=== PATIENT | male | born 1930 | race Caucasian/White ===

== ENCOUNTER 2017-01-25 00:45 | Inpatient (IN) | payer OTHER ==
[~2017-01-25] VITALS: Ht 157.5 cm; Wt 83.8 kg
--- NOTE | ~2017-01-25 | EKG ---
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
--- NOTE | ~2017-01-25 | 2DMMODE ---
[facility] [address] [place] [address] 2 D/M-MODE ECHOCARDIOGRAM Name: CORNELIA DONALDSON MARCOSElda Room #: 207-P ADM IN M.R.#: [id number] Admission: 01/25/17 Attend Phys: Damian Benz Discharge: Date of : 32 Date of Service: 01/25/17 1622 Report #: [id number] THIS REPORT FOR: //name// APPROVED REPORT EXAM: Comprehensive 2D, Doppler, and color-flow Echocardiogram Patient Location: Bedside/Room 207 Blood Pressure: 100/59 mmHg HR: 91 bpm Rhythm: Irregular Other Information Study Quality: Adequate. Technically limited study due to lung artifact. Difficult parasternal window.. Indications SOA, edema, CHF. Hx: DM 2D Dimensions RVDd: 44.52 mm LVEF(%): 35.68 (>50%) IVSd: 10.78 (7-11mm) LVOT Diam: 23.46 (18-24mm) LVDd: 56.48 mm PWd: 9.94 (7-11mm) Ascending Aorta: 36.77 mm LVDs: 46.69 (25-40mm) IVC: 24.00 mm Hyde's LVEF: 35.68 % Volumes Left Atrial Volume (Systole) Single Plane 4CH: 87.81 mL Single Plane 2CH: 89.32 mL Aortic Valve AoV Peak Chaitanya.: 1.50 m/s AO Peak Gr.: 9.04 mmHg LV Max P.93 mmHg LV Max: 0.69 m/s Mitral Valve MV PHT: 47.62 ms MV E Max Chaitanya.: 1.59 m/s E/A Ratio: 2.2 MV A Chaitanya.: 0.71 m/s MV Decel. Time: 164.22 ms [facility] [place] [address] 2 D/M-MODE ECHOCARDIOGRAM Name: CORNELIA DONALDSON MARCOSElda Room #: 207-[facility] IN M.R.#: [id number] Admission: 01/25/17 Attend Phys: Damian Benz Discharge: Date of : 32 Date of Service: 01/25/17 1622 Report #: [id number] TDI E/Lateral E': 19.00 E/Medial E': 41.00 Pulmonary Valve PV Peak Chaitanya.: 0.55 m/s PV Peak Gr.: 1.23 mmHg Tricuspid Valve TR Peak Chaitanya.: 3.40 m/s RAP Estimate: 10.00 mmHg TR Peak Gr.: 46.34 mmHg RVSP: 56.00 mmHg Left Ventricle The left ventricle is normal size. There is normal left ventricular wall thickness. Left ventricular systolic function is severely decreased. LVEF is 30-35% with segmental wall motion abnormalities and apical mild dyskinesia Grade III - reversible restrictive diastolic dysfunction. Right Ventricle Right ventricle is mildly dilated. Right ventricle is hypokinetic. Atria Left atrium is moderate to severely dilated. Right atrium is mildly dilated. Aortic Valve Aortic valve is calcified with focal echodensity which cannot rule out vegetation although calcification likely Mild aortic regurgitation. There is no aortic valvular stenosis. Mitral Valve Mitral valve is normal in structure. Mild mitral annular calcification. Moderate to severe mitral regurgitation There is no mitral valve stenosis. Tricuspid Valve The tricuspid valve is normal in structure. There is moderate tricuspid regurgitation. The right atrial pressure is estimated at 10 mmHg. There is moderate pulmonary hypertension with a pulmonary artery pressure estimated at 56mmHg. Pulmonic Valve The pulmonary valve is normal in structure. Mild pulmonic regurgitation. [employer] [facility] [address] [place] [address] 2 D/M-MODE ECHOCARDIOGRAM Name: CORNELIA DONALDSON Room #: 207-P ADM IN M.R.#: [id number] Admission: 01/25/17 Attend Phys: Damian Benz Discharge: Date of : 32 Date of Service: 01/25/17 1622 Report #: [id number] Aortic root is mildly dilated. Ascending aorta measures at the upper limits of normal. IVC is normal in size and collapses <50% with inspiration. Pericardium There is no pericardial effusion. <Conclusion> The left ventricle is normal size. LVEF is 30-35% with segmental wall motion abnormalities and apical mild dyskinesia Right ventricle is mildly dilated. Right ventricle is hypokinetic. Left atrium is moderate to severely dilated. Right atrium is mildly dilated. Aortic valve is calcified with focal echodensity which cannot rule out vegetation although calcification likely Mild aortic regurgitation. Mitral valve is normal in structure. Mild mitral annular calcification. Moderate to severe mitral regurgitation There is moderate tricuspid regurgitation. The right atrial pressure is estimated at 10 mmHg. There is moderate pulmonary hypertension with a pulmonary artery pressure estimated at 56mmHg. Mild pulmonic regurgitation. Aortic root is mildly dilated. <ELECTRONICALLY SIGNED> By: Miguelangel Valle MD 01/25/17 1622 162 162 Miguelangel Valle MD /INF
--- NOTE | ~2017-01-25 | HC ---
[facility] [place] [address] CONSULTATION Name: CORNELIA DONALDSON Room #: 207-P ADM IN M.R.#: [id number] Admission: 01/25/17 Attend Phys: Damian Joaquin Discharge: Date of : 31 Report #: [id number] THIS REPORT FOR: //name// CC: Aj Joaquin DATE OF ADMISSION: 01/25/2017 DATE OF CONSULTATION: 01/25/2017 REASON FOR CONSULTATION: Kidney disease in the setting of diabetes mellitus and congestive heart failure. HISTORY OF PRESENT ILLNESS: This 86-year-old male has a known history of hypertension and diabetes. He is uncertain how long his hypertension and diabetes had been present, however. He tells me that he had recent hypoglycemia and that his diabetes medications were discontinued. The patient presented to [facility] with shortness of breath and congestive heart failure. He was given furosemide 80 mg IV and transferred to [facility] for further evaluation and treatment. PAST MEDICAL HISTORY: Remarkable for BPH, congestive heart failure, diabetes mellitus and hypertension. ALLERGIES: Are reported to RADIOLotedaTRAST. MEDICATIONS: On admission to the hospital include furosemide 60 mg daily, prednisone 5 mg daily, zolpidem p.r.n., tamsulosin 0.4 mg daily, aspirin 81 mg daily. PAST SURGICAL HISTORY: Is remarkable for cataract extraction and previous right knee surgery, details unknown. PERSONAL AND SOCIAL HISTORY: The patient does not smoke, use alcohol or have any history of substance abuse. REVIEW OF SYSTEMS: Remarkable for the absence of fevers, chills, sweats or other constitutional complaints. He reports some increasing pedal edema over the past several weeks. He reports some difficulty with his voiding. He has had no previous prostate procedures. He denies shortness of breath at rest. He has had dyspnea on exertion. He denies chest pain, palpitations, nausea, vomiting, diarrhea or constipation. PHYSICAL EXAMINATION: GENERAL: Reveals a well-developed, well-nourished elderly male in no acute distress. [facility] [address] [place] [address] CONSULTATION Name: MENDOZACORNELIA STEPHENS Room #: [facility] IN M.R.#: [id number] Admission: 01/25/17 Attend Phys: Damian Joaquin Discharge: Date of : 31 Report #: [id number] VITAL SIGNS: Blood pressure 121/71, temperature 97.2, pulse 92, respirations 22, weight 185 pounds. SKIN: Warm and dry. There is 1+ edema of the lower extremities bilaterally. There is no evidence of cellulitis. There are no cords palpable. There is no gross adenopathy present. HEENT: The head is normocephalic and atraumatic. The sclerae are white and the conjunctivae are not injected. The pharynx is benign. NECK: Supple. LUNGS: Johns reveal diminished breath sounds at the bases bilaterally without wheezes or crackles heard. CARDIOVASCULAR: Reveals a regular rate and rhythm without rub. ABDOMEN: Obese, soft and nontender without palpable mass or organomegaly. LABORATORY STUDIES: Available at this time includes sodium 143, potassium 3.3, chloride 103, CO2 of 27, BUN 40, creatinine 2.0, glucose 147. Albumin 3.3. ASSESSMENT: 1. Renal insufficiency of unclear etiology or duration. I suspect the patient has evolving diabetic nephropathy. Full serologic evaluation as well as urine studies and renal ultrasound are in order and I will proceed to order these. I agree with current ongoing intravenous Lasix diuresis with appropriate potassium supplementation as has been done already this morning. 2. Diabetes mellitus. 3. Hypertension. 4. Benign prostatic hypertrophy. PLAN: I have ordered additional diagnostic studies as outlined. He needs instruction on a 2 g sodium 1800 calorie ADA diet as well. Please see orders. <ELECTRONICALLY SIGNED> By: Rizwan Burris MD 01/26/17 0832 1250 [id number] Rizwan Burris MD /nt
--- NOTE | ~2017-01-25 | CATHLAB ---
[facility] [address] [employer] [place] [address] INVASIVE PROCEDURE REPORT Name: CORNELIA DONALDSON Room #: 249-P ADM IN M.R.#: [id number] Admission: 01/25/17 Attend Phys: Damian Benz Discharge: Date of : 32 Date of Service: 01/27/17 1413 Report #: [id number] THIS REPORT FOR: //name// CC: Aj Joaquin DATE OF SERVICE: 01/27/2017 REFERRING PHYSICIAN: Kwesi Fairbanks MD INDICATION: Non-ST elevation NV and congestive heart failure. Full risks, benefits and alternatives of cardiac catheterization were explained to the patient. All questions were answered. Informed consent was obtained. A Barbeau test was performed on the right radial artery. Initially, the diagnostic catheterization was performed using the right femoral artery access. A 4-Citizen Of [place] sheath was inserted into the right femoral artery via modified Seldinger technique. Trying to pass the catheters into the aortic sinus was difficult secondary to excessive tortuosity in the right iliac artery, abdominal aorta and thoracic aorta. It was decided to proceed with the procedure via the right radial artery access. A 5-Citizen Of [place] sheath was inserted into the right radial artery. Nitroglycerin and verapamil was injected through the sheath. 3000 units of heparin was given through peripheral IV. CORONARY ANATOMY: Left main has a moderate stenosis of 50-60% in the mid segment. The LAD has a severe stenosis in the proximal segment, 80%. The left circumflex artery has a severe 80% stenosis in the proximal segment. The RCA is a dominant vessel with a severe, 90% stenosis in the proximal segment. A left ventriculogram was not performed in view of an elevated creatinine level. The LVEDP is 49 mmHg. There is no gradient across the outflow tract. IMPRESSION: 1. Severe 3-vessel disease. 2. Elevated left ventricular end-diastolic pressure. 3. Recommend surgical consultation. <ELECTRONICALLY SIGNED> By: Aries Brandt MD 01/28/17 0748 1413 0132 Aries Brandt MD /nt
--- NOTE | ~2017-01-25 | HC ---
[facility] [place] [address] CONSULTATION Name: MENDOZACORNELIA Room #: 213-P [facility] IN M.R.#: [id number] Admission: 01/25/17 Attend Phys: Damian Joaquin Discharge: 02/04/17 Date of : 31 Report #: [id number] THIS REPORT FOR: //name// CC: Aj Joaquin DATE OF SERVICE: 02/03/2017 HISTORY OF PRESENT ILLNESS: The patient is an 86-year-old white male, originally admitted to [facility] with increased shortness of breath. He was noted to have acute respiratory failure with a CHF exacerbation. Elevated troponin. He had anasarca and gzfeu-jx-gkufsdc renal insufficiency. He underwent cardiac catheterization and noted to have coronary artery disease with stenting to the LAD and right coronary artery. He was doing quite well, was ambulating 150 feet with a front-wheeled walker and getting ready for discharge, when he had the sudden onset of right arm and leg weakness on 02/02. A Code Stroke was called. Neurology was consulted. MRI did reveal an acute to subacute, moderate sized upper right cerebellar infarct without hemorrhage. He was noted to have significant decline in his overall functional mobility and ADLs, and we have been consulted regarding inpatient rehabilitation. PAST MEDICAL HISTORY: Includes asthma, BPH, diabetes mellitus, recent diagnosis of CHF, cataracts and right knee surgery. PAST SURGICAL HISTORY: As noted above. HABITS: No history of tobacco or ETOH. ALLERGIES: CONTRAST DYE. SOCIAL HISTORY: Lives in an apartment with his . No stairs. Used a walker premorbidly. There is a daughter who lives in the area and a son who is visiting from [place]. REVIEW OF SYSTEMS: Did not offer any current complaints of chest pain, shortness of breath or abdominal discomfort. He has frustration with the weakness of the right side and his decreased function. PHYSICAL EXAMINATION: GENERAL: An 86-year-old white male, in no obvious distress. VITAL SIGNS: Last recorded temperature is 98, pulse 80, respirations 18 and blood pressure 93/61. NEUROLOGIC: He is alert. He tends to keep his right eye closed as it seems to help with some double vision. With EOMs, he had reasonably good tracking. I could not detect any obvious visual field neglect to confrontation. Facies appeared to be symmetric. He does have definite decreased coordination of that [facility] [address] [place] [address] CONSULTATION Name: CORNELIA DONALDSON Room #: 213-P [facility] IN M.R.#: [id number] Admission: 01/25/17 Attend Phys: Damian Joaquin Discharge: 02/04/17 Date of : 31 Report #: [id number] right upper extremity with ysldbr-yd-vgrd, fine finger dexterity and rapid alternating movements. Strength is grade 4- to 3+/5. Left upper extremity strength is more of a grade 4/5. In his lower extremities, he appeared to have decreased coordination of that right lower extremity. Strength is a grade 4- to 3+. Left lower extremity strength is more of a grade 4. Sensation was reasonably intact to simultaneous stimulation. He has had some listing to the right and now is needing moderate assist with sit to stand. He was able to take 2 steps max assist with a front-wheeled walker. ASSESSMENT: An 86-year-old male with the following problem list: 1. Acute, moderate sized upper right cerebellar infarct. 2. Right-sided upper and lower extremity tammy coordination deficits. 3. Significant functional mobility and ADL deficits. 4. Rule out visual deficits. He tends to keep the right eye closed. 5. Three-vessel coronary artery disease status post stenting left anterior descending and right coronary artery. 6. Congestive heart failure exacerbation. 7. Elevated troponin. 8. Recent acute respiratory failure. 9. Acute renal insufficiency superimposed on chronic kidney disease. PLAN: The patient is a candidate who would benefit from an acute in-hospital inpatient rehabilitation stay. He has an acute CVA and definitely meets diagnostic and medical necessity criteria. He definitely has the tolerance for an acute rehab level of therapies, and this is well delineated in the physical therapy note from earlier today. Would recommend PT, OT and speech therapy with the visual deficit and complaints that he has with some diplopia. He has a supportive family and has appropriate discharge goals back to the home setting. Insurance precertification issues to be obtained with the plan of transferring to the acute inpatient rehabilitation [facility]. Discussion was held with family members present. We will be glad to continue to follow along with you. <ELECTRONICALLY SIGNED> By: Sidney House MD 02/07/17 1455 1355 0251 Sidney House MD /nt
--- NOTE | ~2017-01-25 | EKG ---
[place] [address] [address] [facility] [place] [address] ELECTROCARDIOGRAM REPORT Name: CORNELIA DONALDSON Room #: 213-P ADM IN M.R.#: [id number] Admission: 01/25/17 Attend Phys: Damian Joaquin Discharge: Date of : 31 Report #: [id number] THIS REPORT FOR: //name// [facility] Test Date: 2017-01-30 Test Time: 02:06:48 Pat Name: CORNELIA DONALDSON Department: Room: 213 Gender: Tie Sawyer: aw01 : 1930 Requested By: Irina Lowe Order Number: [id number] MD: Kwesi Fairbanks Measurements Intervals [place] Rate: 86 P: 54 [place]: 161 QRS: 42 QRSD: 100 T: 160 QT: 397 QTc: 475 Interpretive Statements Sinus rhythm Borderline low voltage, extremity leads Nonspecific repol abnormality, diffuse leads Compared to ECG 01/28/2017 06:53:52 No significant changes Electronically Signed On 02-03-2017 13:02:31 CDT by Kwesi Fairbanks [email or web address] <ELECTRONICALLY SIGNED> By: Kwesi Fairbanks MD 02/03/17 1302 5 5 Kwesi Fairbanks MD /MICHA
--- NOTE | ~2017-01-25 | EKG ---
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
--- NOTE | ~2017-01-25 | EKG ---
[address] [address] ELECTROCARDIOGRAM REPORT Name: CORNELIA DONALDSON Room #: 213-P ADM IN M.R.#: [id number] Admission: 01/25/17 Attend Phys: Damian Joaquin Discharge: Date of : 31 Report #: [id number] THIS REPORT FOR: //name// 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
--- NOTE | ~2017-01-25 | EKG ---
[address] 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
--- NOTE | ~2017-01-25 | HC ---
[facility] [place] [address] CONSULTATION Name: CORNELIA DONALDSON Room #: 213- ADM IN M.R.#: [id number] Admission: 01/25/17 Attend Phys: Damian Joaquin Discharge: Date of : 31 Report #: [id number] THIS REPORT FOR: //name// CC: Aj Joaquin We were asked by Dr. Brandt to see the patient. HISTORY OF PRESENT ILLNESS: The patient is an 86-year-old admitted with progressive shortness of breath for 2-3 weeks. The patient is Czech speaking and much of this was done with an director perioperative. There is no history of chest pain, but there is a progressive history of shortness of breath and fluid retention. Cardiac catheterization today shows severe 3-vessel coronary artery disease with 80% lesions in LAD, circumflex system and right coronary artery. Left ventricular function is reduced on echo and is approximately 20%. PAST MEDICAL HISTORY: Significant for hypertension, diabetes mellitus, asthma, possible transient ischemic attack. MEDICATIONS: Includes Lasix, Prednisone, zolpidem, tamsulosin, hydrocodone, aspirin. ALLERGIES: CONTRAST DYE. SOCIAL HISTORY: , was transferred here from [place], never smoker, no alcohol. FAMILY HISTORY: Significant for heart disease, cancer and diabetes. REVIEW OF SYSTEMS: CONSTITUTIONAL: Denies fever, chills, change in appetite. EYES: No eye pain, visual change. HEENT: No congestion, headache, drainage. RESPIRATORY: Affirmative for shortness of breath, dyspnea on exertion, orthopnea, shortness of breath both with exertion and rest. No cough, hemoptysis. CARDIAC: Shortness of breath on exertion, edema, orthopnea. No chest pain, palpitations. GASTROINTESTINAL: No nausea, vomiting, diarrhea or blood. GENITOURINARY: No urinary frequency, urgency or blood. MUSCULOSKELETAL: Has myalgias, no back pain, muscle pain. SKIN: No rash or infection. NEUROLOGIC: No motor or sensory dysfunction. There is a history of syncopal or near syncopal episode two or so years ago when patient was lying on the floor and was somewhat disoriented, but does not appear to have been repeated. PSYCHIATRIC: No anxiety or depression. ENDOCRINE: No hot or cold intolerance. [address] [address] CONSULTATION Name: CORNELIA DONALDSON Room #: 213-P [facility] IN M.R.#: [id number] Admission: 01/25/17 Attend Phys: Damian Joaquin Discharge: Date of : 31 Report #: [id number] HEMATOLOGIC: No bruising, anemia, swelling. PHYSICAL EXAMINATION: VITAL SIGNS: Blood pressure 120/90, heart rate 93, respiratory rate 24. GENERAL: The patient is lying on the gurney sedate, not very animated, appears chronically weak, but no acute distress. HEENT: No scleral icterus. Pupils are round, equal. Gaze conjugate, normocephalic. No nasal or oral mucosal injection. NECK: No lymphadenopathy, no bruit. CHEST: Distant breath sounds. No adventitious sounds heard. HEART: Rhythm regular, no murmurs or gallops. Heart tones somewhat distant. ABDOMEN: Soft, no mass, no tenderness. EXTREMITIES: 1-2+ edema. Strong popliteal pulses. I do not feel distal pulses. SKIN: Moist, edematous, no rash or infection. NEUROLOGIC: No obvious motor or sensory dysfunction. MUSCULOSKELETAL: No bone or joint deformity or asymmetry or deformity. PSYCHIATRIC: Answers questions appropriately in Czech with the director perioperative, not very conversant; however, seems to have insight into problem. ASSESSMENT AND PLAN: The patient has ischemic cardiomyopathy and presents with shortness of breath. Traditionally, this category of patients are not helped by coronary artery bypass surgery as opposed to the subset who present with chest pain. I will discuss the case with Dr. Brandt. Certainly, the patient looks chronically weak and with poor ventricular function and the presentation of heart failure without pain, he is in a high risk subcategory for surgery. <ELECTRONICALLY SIGNED> By: Sam Suárez MD 02/01/17 0829 1955 0510 Sam Suárez MD /nt
--- NOTE | ~2017-01-25 | CATHLAB ---
[facility] [address] [place] [address] INVASIVE PROCEDURE REPORT Name: MENDOZACORNELIA Room #: 213-P [facility] IN M.R.#: [id number] Admission: 01/25/17 Attend Phys: Damian Benz Discharge: Date of : 31 Date of Service: 02/01/17 0942 Report #: [id number] THIS REPORT FOR: //name// CC: Aj Joaquin DATE OF SERVICE: 02/01/2017 INDICATION: Ischemic cardiomyopathy, congestive heart failure, non-ST elevation MA. This is a stage angioplasty procedure. Please see the original cardiac cath report for full details. There were severe occlusions in the proximal LAD and mid RCA Full risks, benefits and alternatives of cardiac catheterization with angioplasty has been discussed with the patient and family members. All questions were answered. Informed consent was obtained. The left groin area was prepped and draped in a sterile manner. Lidocaine was given subcutaneously. A 6-Slovak 23-mm sheath was placed. Angioplasty on vessel #1. The patient was given heparin and ACT was checked. A 6-Slovak EBU 3.5 guide catheter was used. There was a severe 90% stenosis in the proximal LAD. I placed a Luge wire down the LAD. The proximal stenosis was predilated with a 2.0 mm Euphora balloon. This was a long area of stenosis elected to use a 2.5 x 26 mm Resolute stent (drug-eluting stent), inflated up to 14 atmospheres. This stent was postdilated with a 2.75 mm noncompliant balloon, NC Euphora inflated up to 18 and 20 mm respectively. Final injections revealed SHAKIRA 3 blood flow down the LAD with a less than 10% residual stenosis at the lesion site. Vessel #2, 90% stenosis in the mid RCA. A JR4 guide catheter was used. I placed a Luge wire down the RCA. The mid segment stenosis was predilated with a mm balloon. I elected to use a 3.0 x 18 mm Resolute stent, inflated up to 14 atmospheres. This stent was postdilated with a 3.25 mm noncompliant balloon, NC Euphora inflated up to 18 atmospheres. Final injections revealed SHAKIRA 3 blood flow with a 0% residual stenosis. IMPRESSION: 1. Successful insertion of a drug-eluting stent to the proximal left anterior descending. 2. Successful insertion of a drug-eluting stent into the mid right coronary artery stenosis. <ELECTRONICALLY SIGNED> By: Aries Brandt MD 02/02/17 0841 0942 1220 Aries Brandt MD /nt
--- NOTE | ~2017-01-25 | EKG ---
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
--- NOTE | ~2017-01-25 | EKG ---
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 01/26/17 0740 0648 7 Lawrence Sutton MD, FACC /EPI
[2017-01-25 01:30] VITALS: BP 117/75
[2017-01-25] MEDS ORDERED: LASIX 20 MG TAB20 MG PO (02:50)
[2017-01-25] MEDS ORDERED: PREDNISONE 5 MG5 M1 PO (02:51)
[2017-01-25] MEDS ORDERED: AMBIEN 5 MG TABL5 M1 PO (02:52)
[2017-01-25] MEDS ORDERED: FLOMAX0.4 MG PO (02:53)
[2017-01-25] MEDS ORDERED: HYDROCODONE-AP1 EAC6 PO (02:55)
[2017-01-25] MEDS ORDERED: ASPIR 8181 MG PO (02:55)
[2017-01-25 04:04] LABS: ALBUMIN 3.3 g/dL (3.4-5.0); CALCIUM 8.1 mg/dL (8.5-10.1); POTASSIUM 3.3 mmol/L (3.5-5.1); TROPONIN-I 0.13 ng/mL (<0.04-0.07)
[2017-01-25 04:06] VITALS: BP 104/69
[2017-01-25 07:40] VITALS: BP 100/59
[2017-01-25 12:30] VITALS: BP 121/71
[2017-01-25 16:00] VITALS: BP 104/71
[2017-01-25] MEDS ORDERED: NEURONTIN 300300 M1 PO (16:44)
[2017-01-25] MEDS ORDERED: NORCO 10-325 T1 EACH PO (16:45)
[2017-01-25 16:46] LABS: URINE BILIRUBIN NEGATIVE (Negative); URINE BLOOD NEGATIVE (Negative); URINE COLOR YELLOW; URINE GLUCOSE-RANDOM* NEGATIVE (Negative); URINE KETONES NEGATIVE (Negative); URINE NITRITE NEGATIVE (Negative); URINE PROTEIN (DIPSTICK) NEGATIVE (Negative); URINE UROBILINOGEN 0.2 E.U./dl (0.2-1.0)
[2017-01-25] MEDS ORDERED: PERCOCET 7.5-31 EACH PO (16:46)
[2017-01-25 16:58] LABS: BACTERIA >30 Many /HPF (None Seen); CRYSTALS None Seen /LPF (None Seen); HYALINE CASTS 0-3 Few /LPF (None Seen); SQUAMOUS 0-3 Few /LPF (0-3); URINE RBC 0-2 Rare /HPF (0-2); URINE WBC >25 Many /HPF (0-5); WBC CLUMPS Few (None Seen)
[2017-01-25 19:43] VITALS: BP 131/84
[2017-01-26 00:10] LABS: URINE CREATININE-RANDOM* 74.8 mg/dL (Not Estab.)
[2017-01-26 03:23] LABS: HEMATOCRIT 36.1 % (42.0-52.0); HEMOGLOBIN 11.6 gm/dL (14.0-18.0); MCH 28.7 pg (26.0-34.0); MCHC 32.2 g/dL (28.0-37.0); MCV 89.3 fL (80.0-100.0); RBC 4.05 mil/uL (4.50-6.00); RDW 16.8 % (10.5-14.5); WBC 8.6 thou/uL (4.0-11.0)
[2017-01-26 03:43] LABS: ALBUMIN 3.1 g/dL (3.4-5.0); CALCIUM 8.1 mg/dL (8.5-10.1); CREATININE 2.4 mg/dL (0.6-1.3); PHOSPHORUS 4.4 mg/dL (2.5-4.9); POTASSIUM 3.9 mmol/L (3.5-5.1); TROPONIN-I 0.13 ng/mL (<0.04-0.07)
[2017-01-26 04:18] VITALS: BP 104/71
[2017-01-26 08:35] VITALS: BP 128/78
[2017-01-26 13:50] VITALS: BP 107/72
[2017-01-26 20:00] VITALS: BP 111/81
[2017-01-26 23:35] VITALS: BP 106/69
[2017-01-27 02:24] LABS: ALBUMIN 3.1 g/dL (3.4-5.0); CALCIUM 8.1 mg/dL (8.5-10.1); CREATININE 2.3 mg/dL (0.6-1.3); PHOSPHORUS 3.9 mg/dL (2.5-4.9); POTASSIUM 4.5 mmol/L (3.5-5.1)
[2017-01-27 03:47] VITALS: BP 129/84
[2017-01-27 07:15] VITALS: BP 108/75
[2017-01-27 11:40] VITALS: BP 115/82
[2017-01-27 16:08] LABS: KAPPA FREE LIGHT CHAINS 53.15 mg/L (3.30-19.40); KAPPA/LAMBDA RATIO 1.48 (0.26-1.65); LAMBDA FREE LIGHT CHAINS 35.85 mg/L (5.71-26.30)
[2017-01-28] VITALS (22 sets, daily range): BP systolic 97–115; BP diastolic 70–89
[2017-01-28 03:28] LABS: ABG SAMPLE TYPE ARTERIAL; BE(vivo) -3.4 mmol/L (-2 to +3); HCO3 20.8 mmol/L (22.0-26.0); LACTATE 2.22 mmol/L (0.5-2.0); O2(CT) 16.8 mL/dL (15.0-23.0); O2Hb 96.3 % (92.0-98.0); PCO2 34.8 mmHg (35.0-45.0); STICK SITE L.RADIAL; pH 7.395 (7.360-7.450); sO2 97.4 % (92.0-98.0); tCO2 21.9 mmol/L (24.0-30.0)
[2017-01-28 05:07] LABS: HEMATOCRIT 35.5 % (42.0-52.0); HEMOGLOBIN 11.5 gm/dL (14.0-18.0); MCH 29.1 pg (26.0-34.0); MCHC 32.3 g/dL (28.0-37.0); MCV 90.2 fL (80.0-100.0); RBC 3.94 mil/uL (4.50-6.00); RDW 17.2 % (10.5-14.5); WBC 10.5 thou/uL (4.0-11.0)
[2017-01-28 06:01] LABS: ALBUMIN 3.1 g/dL (3.4-5.0); CALCIUM 8.2 mg/dL (8.5-10.1); CREATININE 2.4 mg/dL (0.6-1.3); PHOSPHORUS 6.2 mg/dL (2.5-4.9); POTASSIUM 5.1 mmol/L (3.5-5.1); TROPONIN-I 0.35 ng/mL (<0.04-0.07)
[2017-01-28 16:09] LABS: c-ANCA <1:20 titer (Neg:<1:20); p-ANCA <1:20 titer (Neg:<1:20)
[2017-01-29] VITALS (25 sets, daily range): BP systolic 92–134; BP diastolic 61–103
[2017-01-29 04:15] LABS: HEMATOCRIT 33.8 % (42.0-52.0); HEMOGLOBIN 11.1 gm/dL (14.0-18.0); MCH 29.2 pg (26.0-34.0); MCHC 32.7 g/dL (28.0-37.0); MCV 89.3 fL (80.0-100.0); RBC 3.79 mil/uL (4.50-6.00); RDW 17.1 % (10.5-14.5); WBC 9.9 thou/uL (4.0-11.0)
[2017-01-29 04:33] LABS: ALBUMIN 3.1 g/dL (3.4-5.0); CALCIUM 8.1 mg/dL (8.5-10.1); CREATININE 2.7 mg/dL (0.6-1.3); MAGNESIUM 2.2 mg/dL (1.8-2.4); PHOSPHORUS 7.4 mg/dL (2.5-4.9); POTASSIUM 4.5 mmol/L (3.5-5.1)
[2017-01-30] VITALS (30 sets, daily range): BP systolic 87–111; BP diastolic 64–85
[2017-01-30 03:44] LABS: ALBUMIN 2.9 g/dL (3.4-5.0); CALCIUM 7.6 mg/dL (8.5-10.1); CREATININE 2.8 mg/dL (0.6-1.3); PHOSPHORUS 8.1 mg/dL (2.5-4.9); POTASSIUM 4.3 mmol/L (3.5-5.1)
[2017-01-31 03:57] LABS: ALBUMIN 2.8 g/dL (3.4-5.0); CALCIUM 7.4 mg/dL (8.5-10.1); PHOSPHORUS 7.1 mg/dL (2.5-4.9)
[2017-01-31 04:23] VITALS: BP 99/67
[2017-01-31 07:41] VITALS: BP 101/58
[2017-01-31 11:47] VITALS: BP 99/63
[2017-01-31 16:00] LABS: HEMATOCRIT 33.5 % (42.0-52.0); MCH 28.8 pg (26.0-34.0); MCHC 32.8 g/dL (28.0-37.0); MCV 87.7 fL (80.0-100.0); RBC 3.82 mil/uL (4.50-6.00); RDW 16.4 % (10.5-14.5); WBC 10.5 thou/uL (4.0-11.0)
[2017-01-31 16:08] LABS: CALCIUM 7.5 mg/dL (8.5-10.1)
[2017-01-31 17:47] VITALS: BP 131/65
[2017-01-31 21:09] VITALS: BP 107/63
[2017-02-01 03:32] VITALS: BP 98/64
[2017-02-01 04:15] LABS: ALBUMIN 2.8 g/dL (3.4-5.0); CREATININE 2.8 mg/dL (0.6-1.3); MAGNESIUM 2.4 mg/dL (1.8-2.4); PHOSPHORUS 5.6 mg/dL (2.5-4.9); POTASSIUM 3.4 mmol/L (3.5-5.1)
[2017-02-01 04:16] LABS: HEMATOCRIT 31.4 % (42.0-52.0); HEMOGLOBIN 10.2 gm/dL (14.0-18.0); MCH 28.9 pg (26.0-34.0); MCHC 32.6 g/dL (28.0-37.0); MCV 88.9 fL (80.0-100.0); RBC 3.53 mil/uL (4.50-6.00); RDW 16.6 % (10.5-14.5); WBC 10.1 thou/uL (4.0-11.0)
[2017-02-01 13:30] VITALS: BP 108/74
[2017-02-01 16:00] VITALS: BP 103/71
[2017-02-01 20:01] VITALS: BP 97/65
[2017-02-01 23:44] VITALS: BP 122/86
[2017-02-02] VITALS (7 sets, daily range): BP systolic 99–114; BP diastolic 61–90
[2017-02-02 03:51] LABS: ALBUMIN 2.3 g/dL (3.4-5.0); CREATININE 2.5 mg/dL (0.6-1.3); PHOSPHORUS 7.5 mg/dL (2.5-4.9); POTASSIUM 3.9 mmol/L (3.5-5.1)
[2017-02-02 04:11] LABS: HEMATOCRIT 27.4 % (42.0-52.0); HEMOGLOBIN 8.9 gm/dL (14.0-18.0); MCH 29.1 pg (26.0-34.0); MCHC 32.6 g/dL (28.0-37.0); MCV 89.4 fL (80.0-100.0); RBC 3.06 mil/uL (4.50-6.00); RDW 16.5 % (10.5-14.5); WBC 9.4 thou/uL (4.0-11.0)
[2017-02-02] MEDS ORDERED: CEFUROXIME250 MG PO (09:00)
[2017-02-02] MEDS ORDERED: CLOPIDOGREL75 MG PO (09:00)
[2017-02-02] MEDS ORDERED: ATORVASTATIN CA20 MG PO (09:01)
[2017-02-02] MEDS ORDERED: ASPIRIN325 PO (09:01)
[2017-02-02] MEDS ORDERED: CARVEDILOL3.125 MG PO (09:01)
[2017-02-02] MEDS ORDERED: ACETAMINOPHEN325 M1 PO (09:01)
[2017-02-02] MEDS ORDERED: COLACE 100 MG100 MG PO (09:02)
[2017-02-02] MEDS ORDERED: RENVELA800 MG PO (09:02)
[2017-02-02] MEDS ORDERED: LASIX 40 MG TAB40 M2 PO (09:27)
[2017-02-02 11:23] LABS: HEMATOCRIT 27.8 % (42.0-52.0); MCH 28.8 pg (26.0-34.0); MCHC 32.4 g/dL (28.0-37.0); MCV 88.9 fL (80.0-100.0); PLATELET COUNT 133 thou/uL (150-400); RBC 3.13 mil/uL (4.50-6.00); RDW 16.7 % (10.5-14.5)
[2017-02-02 11:27] LABS: CREATININE 2.5 mg/dL (0.6-1.3); POTASSIUM 4.1 mmol/L (3.5-5.1)
[2017-02-02 11:31] LABS: MANUAL DIFF YES
[2017-02-02 12:02] LABS: ANISOCYTOSIS 1+; NUCLEATED RBCS 1 /100WBC; TOTAL CELL COUNT 100
[2017-02-02 12:21] LABS: CHOLESTEROL 147 mg/dL (<200); HDL CHOLESTEROL 36 mg/dL (>40); LDL CHOLESTEROL 68 mg/dL (<100); TC:HDL 4.1 Ratio (Not establshd); TRIGLYCERIDE 219 mg/dL (<150); VLDL 44 mg/dL (<40)
[2017-02-02 12:49] LABS: TSH 0.401 uIU/mL (0.358-3.740)
[2017-02-02 22:06] LABS: GLYCOHEMOGLOBIN (HGB A1C) 5.4 % (4.8-5.6)
[2017-02-03 03:25] VITALS: BP 108/72
[2017-02-03 03:59] LABS: ALBUMIN 2.4 g/dL (3.4-5.0); CREATININE 2.3 mg/dL (0.6-1.3); PHOSPHORUS 5.1 mg/dL (2.5-4.9); POTASSIUM 3.8 mmol/L (3.5-5.1)
[2017-02-03 04:28] LABS: HEMATOCRIT 26.3 % (42.0-52.0); HEMOGLOBIN 8.6 gm/dL (14.0-18.0); MCHC 32.7 g/dL (28.0-37.0); MCV 88.7 fL (80.0-100.0); RBC 2.97 mil/uL (4.50-6.00); RDW 16.2 % (10.5-14.5); WBC 11.6 thou/uL (4.0-11.0)
[2017-02-03 05:04] LABS: URINE BILIRUBIN NEGATIVE (Negative); URINE BLOOD 3+ (Negative); URINE COLOR YELLOW; URINE GLUCOSE-RANDOM* NEGATIVE (Negative); URINE KETONES NEGATIVE (Negative); URINE NITRITE NEGATIVE (Negative); URINE PROTEIN (DIPSTICK) NEGATIVE (Negative); URINE SPECIFIC GRAVITY 1.015 (1.003-1.035); URINE UROBILINOGEN 0.2 E.U./dl (0.2-1.0)
[2017-02-03 06:15] LABS: SQUAMOUS 0-3 Few /LPF (0-3)
[2017-02-03 06:16] LABS: CASTS None Seen /LPF (None Seen); CRYSTALS None Seen /LPF (None Seen); WBC CLUMPS Rare (None Seen); YEAST Present (None Seen)
[2017-02-03 06:17] LABS: BACTERIA 1-9 Few /HPF (None Seen); URINE RBC 0-2 Rare /HPF (0-2)
[2017-02-03 07:13] VITALS: BP 104/67
[2017-02-03 11:22] VITALS: BP 93/61
[2017-02-03 15:24] VITALS: BP 99/65
[2017-02-03 20:48] VITALS: BP 98/61
[2017-02-04 03:10] VITALS: BP 103/62
[2017-02-04 04:16] LABS: ALBUMIN 2.5 g/dL (3.4-5.0); CALCIUM 7.1 mg/dL (8.5-10.1); CREATININE 2.2 mg/dL (0.6-1.3); PHOSPHORUS 3.9 mg/dL (2.5-4.9); POTASSIUM 3.8 mmol/L (3.5-5.1)
[2017-02-04 04:35] LABS: HEMATOCRIT 25.1 % (42.0-52.0); HEMOGLOBIN 8.3 gm/dL (14.0-18.0); MCH 29.3 pg (26.0-34.0); MCHC 33.2 g/dL (28.0-37.0); MCV 88.3 fL (80.0-100.0); RBC 2.84 mil/uL (4.50-6.00); RDW 16.2 % (10.5-14.5); WBC 8.7 thou/uL (4.0-11.0)
[2017-02-04 08:00] VITALS: BP 101/64
[2017-02-04 12:00] VITALS: BP 102/63
[2017-02-04 15:40] VITALS: BP 110/69
== END 2017-02-04 18:37 | DRG 246 ==
LOC: 2N 00:45 → TBA 01-27 15:49 → ICU 01-27 16:50 → 2N 01-30 12:53
PROVIDERS: Hospitalist; Internal Medicine Cardiovascular Disease; Internal Medicine Nephrology; Nurse Practitioner; Nurse Practitioner Gerontology; Psychiatry & Neurology Neurology
PROC: 4A023N7 Measurement of Cardiac Sampling and Pressure, Left Heart, Percutaneous Approach (ICD-10-PCS; 2017-01-27)
PROC: B2111ZZ Fluoroscopy of Multiple Coronary Arteries using Low Osmolar Contrast (ICD-10-PCS; 2017-01-27)
PROC: 027135Z Dilation of Coronary Artery, Two Arteries with Two Drug-eluting Intraluminal Devices, Percutaneous Approach (ICD-10-PCS; principal; 2017-02-01)
DX: I50.23 Acute on chronic systolic (congestive) heart failure (principal); J96.01 Acute respiratory failure with hypoxia; J18.9 Pneumonia, unspecified organism; I63.9 Cerebral infarction, unspecified; N17.9 Acute kidney failure, unspecified; N39.0 Urinary tract infection, site not specified; I13.0 Hypertensive heart and chronic kidney disease with heart failure and stage 1 through stage 4 chronic kidney disease, or unspecified chronic kidney disease; N40.1 Benign prostatic hyperplasia with lower urinary tract symptoms; N18.3 Chronic kidney disease, stage 3 (moderate); E11.22 Type 2 diabetes mellitus with diabetic chronic kidney disease; D63.1 Anemia in chronic kidney disease; J45.909 Unspecified asthma, uncomplicated; I25.5 Ischemic cardiomyopathy; E78.00 Pure hypercholesterolemia, unspecified; E78.1 Pure hyperglyceridemia; M10.9 Gout, unspecified; E83.39 Other disorders of phosphorus metabolism; Z96.651 Presence of right artificial knee joint; R60.1 Generalized edema; I25.10 Atherosclerotic heart disease of native coronary artery without angina pectoris; B96.20 Unspecified Escherichia coli [E. coli] as the cause of diseases classified elsewhere; Z98.49 Cataract extraction status, unspecified eye; Z79.51 Long term (current) use of inhaled steroids; Z91.041 Radiographic dye allergy status; Z82.49 Family history of ischemic heart disease and other diseases of the circulatory system; Z80.9 Family history of malignant neoplasm, unspecified; Z83.3 Family history of diabetes mellitus; Z79.82 Long term (current) use of aspirin; Z79.899 Other long term (current) drug therapy
CPT/HCPCS: 10078; 10081

== ENCOUNTER 2017-02-04 17:20 | Inpatient (IN) | payer OTHER ==
[~2017-02-04] VITALS: Ht 157.5 cm; Wt 77.2 kg
--- NOTE | ~2017-02-04 | HC ---
[facility] [place] [address] [place] [address] CONSULTATION Name: CORNELIA DONALDSON Room #: 515-P [facility] IN M.R.#: [id number] Admission: 02/04/17 Attend Phys: Sidney House MD Discharge: Date of : 31 Report #: [id number] THIS REPORT FOR: //name// CC: Aj House DATE OF SERVICE: 02/06/2017 NEUROBEHAVIORAL STATUS EXAM AGE: 86. ATTENDING PHYSICIAN: Sidney House MD ACCOUNT DEVELOPMENT REPRESENTATIVE: Jam William, PhD CLINICAL PRESENTATION: The patient is an 86-year-old male admitted to [facility] rehabilitation unit for comprehensive inpatient rehabilitation program to improve functional mobility, activities of daily living and self-care and mental status secondary to impairment from a cerebrovascular accident. Rehabilitation assessment included an acute moderate sized right cerebellar infarction, right side upper and lower extremity deficits, significant functional mobility and ADL deficits, rule out visual deficits, 3-vessel coronary artery disease status post stenting of the left anterior descending and right coronary artery, congestive heart failure, elevated troponin, acute respiratory failure and renal insufficiency superimposed on chronic kidney disease. A complete description of his medical condition and history and medications can be found in his medical record. Neuropsychological consultation was requested to provide assistance in the assessment of cognitive and emotional status and to provide recommendations and services. Prior to this most recent medical event, he was living with his in an apartment. The patient has a son and daughter. The daughter lives in the [place] area and the son in [place]. The patient was initially admitted to the hospital following cardiac catheterization and was progressing well and preparing for discharge when he developed the cerebrovascular accident. TECHNIQUES UTILIZED: Clinical interview, review of medical records, staff consultation and behavioral observation, mini mental status exam 2 (subtest). EXAMINATION FINDINGS: He required frequent attempts at reorientation to maintain adequate level of alertness during the assessment. He was very lethargic and drowsy. Frequent attempts were made to encourage him to maintain visual contact keep his eyes open. His behavior is reported as having been very sedentary and sluggish throughout the day. [facility] [address] [place] [address] CONSULTATION Name: MENDOZACORNELIA STEPHENS Room #: 515-P [facility] IN M.R.#: [id number] Admission: 02/04/17 Attend Phys: Sidney House MD Discharge: Date of : 31 Report #: [id number] The patient has very poor insight into his symptoms. He was unable to indicate the reason for his hospitalization or report difficulty in his functioning regarding cognition, mood or behavior. He also was unable to indicate any current symptoms or problems that require treatment. The patient was not oriented to place or time. Naming was within normal limits. Speech appears dysarthric with word finding deficits. DIAGNOSTIC IMPRESSION: Delirium, hypoactive, acute. 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 Possible depressive disorder. RECOMMENDATIONS: The patient requires 24-hour care and supervision at this time. Verbal praise and compliments and encouragement to maintain involvement in therapies will be necessary. Consider the use of stimulant medication example Provigil/Nuvigil (promote more alert and responsive behavior during day activities and therapies). A followup neuropsych assessment will help clarify the severity of cognitive deficits. At this time, he will require maximum degree of assistance during meals; medication, transferring along with encouragement in the proper use of his call light to acquire help from nursing. Upper extremity dexterity appears impaired and he will likely require assistance with eating. Thank you very much for allowing me to provide the consultation on this patient. <ELECTRONICALLY SIGNED> By: Jam William, PhD 02/10/17 1753 1452 0219 Jam William, PhD /nt
--- NOTE | ~2017-02-04 | H ---
[facility] [address] [place] [address] HISTORY AND PHYSICAL Name: CORNELIA DONALDSON Room #: 515-P ADM IN M.R.#: [id number] Admission: 02/04/17 Attend Phys: Sidney House MD Discharge: Date of : 31 Report #: [id number] THIS REPORT FOR: //name// CC: Aj House AMENDED REPORT - SEE BELOW DATE OF SERVICE: 02/05/2017 HISTORY OF PRESENT ILLNESS: The patient is an 86-year-old white male originally admitted to [facility] with increased shortness of breath. He was noted to have acute respiratory failure with CHF exacerbation. He had an elevated troponin. He had anasarca and acute on chronic renal insufficiency. He underwent cardiac catheterization and was noted to have coronary artery disease with stenting to the LAD and right coronary artery. He was progressing, ambulating 150 feet with a front-wheeled walker and getting ready for discharge when he had the sudden onset of right arm and leg weakness on 02/02/2017. A code stroke was called. Neurology was consulted. MRI did reveal an acute to subacute moderate sized upper right cerebellar infarct without hemorrhage. He was noted to have significant decline in his overall functional mobility and ADLs. He was felt to be ready and has now been admitted for acute in-hospital inpatient rehabilitation. PAST MEDICAL HISTORY: Includes asthma, BPH, diabetes mellitus, recent diagnosis of CHF, cataracts and right knee surgery. PAST SURGICAL HISTORY: As noted above. HABITS: No history of tobacco or ETOH. ALLERGIES: CONTRAST DYE. SOCIAL HISTORY: Lives in an apartment with his . No stairs. Used a walker premorbidly. There is a daughter who lives in an area and a son who is visiting from [place]. REVIEW OF SYSTEMS: Did not offer any current complaints of chest pain, shortness of breath, abdominal discomfort. Notes frustration with his right-sided weakness. PHYSICAL EXAMINATION: GENERAL: An 86-year-old white male who was seen earlier. He was in no distress rather sleepy. He needs redirection. VITAL SIGNS: His last recorded temperature was 36.3, pulse 81, respirations 18, blood pressure 107/68. [facility] [address] [place] [address] HISTORY AND PHYSICAL Name: CORNELIA DONALDSON Room #: 515-P [facility] IN M.R.#: [id number] Admission: 02/04/17 Attend Phys: Sidney House MD Discharge: Date of : 31 Report #: [id number] HEENT: Continues to try to keep his right eye closed. EOMs, he has reasonably good tracking without any obvious visual field neglect to confrontation. Facies appeared to be symmetric. HEENT otherwise appeared to be benign. CHEST: Sounds reasonably clear. CARDIAC: Regular rate and rhythm. ABDOMEN: Bowel sounds positive, nontender. Abrasion on his abdomen and thighs thought related to heparin injections. EXTREMITIES: He has definite decreased coordination of his right upper extremity to finger nose and rapid alternating movements. Strength is 4- to 3+/5. Left upper extremity is a grade 4/5. In the lower extremities, he appeared to have decreased coordination of that right lower extremity with strength grade 4- to 3+/5. Left lower extremity strength is more of a grade 4/5. Sensation is reasonably intact. He has considerable weakness and he has been unable to functionally ambulate. ASSESSMENT: An 86-year-old white male with following problem list: 1. Acute moderate sized upper right cerebellar infarct. 2. Right-sided upper and lower extremity tammy-coordination deficits. 3. Significant functional mobility and ADL deficits. 4. Rule out visual deficits. He has tended to keep that right eye closed. 5. Three-vessel coronary artery disease status post stenting, left anterior descending and right coronary artery. 6. Congestive heart failure exacerbation. 7. Elevated troponin. 8. Recent acute respiratory failure. 9. Acute renal insufficiency superimposed on chronic kidney disease. PLAN: The patient is admitted for acute in-hospital inpatient rehabilitation. From a postadmission physician evaluation perspective, there are no relevant changes since the preadmission screening. Please see the above review of prior and current medical and functional conditions and comorbidities. This patient is admitted for acute in-hospital inpatient rehabilitation. Please see the patient's prior and current functional status. As far as risk of complications, he does have the multiple medical comorbidities. Initial plan of care involves the interdisciplinary acute inpatient rehabilitation program with the goal of maximizing his functional independence, so that he can return back to the home setting. Would anticipate length of stay of probably at least several weeks with his significant decreased functional status. We will need to see how he progresses in therapies. Potential barriers would include his decreased functional status and his significant comorbidities. AMENDED - 02/08/17 REPORT ORIGINALLY E.SIGNED - 02/07/17 @ [address] [address] HISTORY AND PHYSICAL Name: CORNELIA DONALDSON Room #: 515-P [facility] IN M.R.#: [id number] Admission: 02/04/17 Attend Phys: Sidney House MD Discharge: Date of : 31 Report #: [id number] This report was inadvertently taken out of signed status. <ELECTRONICALLY SIGNED> By: Sidney House MD 02/14/17 1054 0927 1008 Sidney House MD /nt
--- NOTE | ~2017-02-04 | PLAN ---
[facility] [place] [address] REHAB UNIT PLAN OF CARE Name: CORNELIA DONALDSON Room #: 515-P ADM IN M.R.#: [id number] Admission: 02/04/17 Attend Phys: Sidney House MD Discharge: Date of : 31 Report #: [id number] THIS REPORT FOR: //name// CC: Aj House AMENDED REPORT - SEE BELOW The patient is seen back today in followup. He is in no distress. Last recorded temperature is 98.4, pulse 87, respirations 18, and blood pressure 111/71. The patient is sleepy, but will easily arouse. He has the right-sided coordination deficits. No focal calf swelling. Transfers are max assist, gait max assist 1-2 feet handheld. Grooming is set up. ASSESSMENT: 1. Acute, moderate sized right cerebellar infarct. 2. Right-sided upper and lower extremity tammy coordination deficits. 3. Significant functional mobility and activities of daily living deficits. 4. Rule out visual deficits. He tends to keep his right eye closed. 5. Three-vessel coronary artery disease status post stenting, left anterior descending and right coronary artery. 6. Congestive heart failure. 7. Elevated troponin. 8. Recent acute respiratory failure. 9. Acute renal insufficiency superimposed on chronic kidney disease. PLAN: The overall plan of care is based on the preadmission screen, post-admission physician evaluation and information garnered from therapy assessments. 1. Estimated length of stay is probably fairly long as he is at a lower level. 2. Medical prognosis is reasonably good. We will need to see how he progresses. 3. Anticipated interventions include the interdisciplinary acute inpatient rehabilitation program. 4. Anticipated functional outcomes would be for the patient to hopefully reach the point where he is at least modified independent at a wheelchair level and hopefully even more independent than that. 5. Discharge destination would be back to the apartment with his . They do not have any stairs. 6. Expected therapy by discipline includes PT and OT and speech 1 hour per day each five days a week throughout the duration of the acute inpatient rehabilitation stay He does have [id number] comprehensive deficits as well as [id number] expressive deficits with his CVA. We also will be having the behavioral consultant physicians that are following along regarding his multiple medical comorbidities. ADDENDUM: [address] [address] REHAB UNIT PLAN OF CARE Name: CORNELIA DONALDSON Room #: 515-P [facility] IN .R.#: [id number] Admission: 02/04/17 Attend Phys: Sidney House MD Discharge: Date of : 31 Report #: [id number] On 02/05/2017, the patient missed some therapy with physical therapy and occupational therapy secondary to some lethargy/refusal. AMENDED - 02/08/17 REPORT ORIGINALLY E.SIGNED - 02/07/17 @ 1455 <ELECTRONICALLY SIGNED> By: Sidney House MD 02/14/17 1054 1021 1038 Sidney House MD /nt
--- NOTE | ~2017-02-04 | EKG ---
[place] [address] [facility] 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 : 1930 Requested By: Zoie Day Order Number: [id number] MD: Lawrence Sutton Measurements Intervals [place] Rate: 138 P: 42 RI: 104 QRS: 24 QRSD: 82 T: 106 QT: 280 QTc: 425 Interpretive Statements Sinus tachycardia Nonspecific ST and T wave abnormality Compared to ECG 02/02/2017 10:31:31 heart rate has increased Electronically Signed On 02-22-2017 8:43:04 CDT by Lawrence Sutton [email or web address] <ELECTRONICALLY SIGNED> By: Lawrence Sutton MD, [facility] 02/22/17 0843 19 19 Lawrence Sutton MD, [facility] /EPI
[~2017-02-04 17:20] MED LIST: ACETAMINOPHEN325 M1 PO; AMBIEN 5 MG TABL5 M1 PO; ASPIR 8181 MG PO; ASPIRIN325 PO; ATORVASTATIN CA20 MG PO; CARVEDILOL3.125 MG PO; CEFUROXIME250 MG PO; CLOPIDOGREL75 MG PO; COLACE 100 MG100 MG PO; FLOMAX0.4 MG PO; HYDROCODONE-AP1 EAC6 PO; LASIX 20 MG TAB20 MG PO; LASIX 40 MG TAB40 M2 PO; NEURONTIN 300300 M1 PO; NORCO 10-325 T1 EACH PO; PERCOCET 7.5-31 EACH PO; PREDNISONE 5 MG5 M1 PO; RENVELA800 MG PO
[2017-02-04 18:30] VITALS: BP 97/54
[2017-02-05 04:49] LABS: HEMATOCRIT 25.1 % (42.0-52.0); HEMOGLOBIN 8.1 gm/dL (14.0-18.0); MCH 28.7 pg (26.0-34.0); MCHC 32.5 g/dL (28.0-37.0); MCV 88.4 fL (80.0-100.0); RBC 2.84 mil/uL (4.50-6.00); RDW 16.1 % (10.5-14.5); WBC 8.7 thou/uL (4.0-11.0)
[2017-02-05 05:26] LABS: ALBUMIN 2.3 g/dL (3.4-5.0); CALCIUM 7.1 mg/dL (8.5-10.1); CREATININE 2.4 mg/dL (0.6-1.3); PHOSPHORUS 3.6 mg/dL (2.5-4.9); POTASSIUM 3.7 mmol/L (3.5-5.1)
[2017-02-05 05:40] VITALS: BP 102/63
[2017-02-05 08:37] VITALS: BP 107/68
[2017-02-05 14:22] VITALS: BP 110/71
[2017-02-05 16:00] VITALS: BP 103/66
[2017-02-06 04:35] LABS: ALBUMIN 2.3 g/dL (3.4-5.0); CALCIUM 7.3 mg/dL (8.5-10.1); CREATININE 2.5 mg/dL (0.6-1.3); POTASSIUM 3.8 mmol/L (3.5-5.1)
[2017-02-06 06:02] VITALS: BP 101/61
[2017-02-06 16:00] VITALS: BP 103/69
[2017-02-07 04:00] VITALS: BP 103/66
[2017-02-07 05:43] LABS: HEMATOCRIT 24.6 % (42.0-52.0); MCH 28.7 pg (26.0-34.0); MCHC 32.5 g/dL (28.0-37.0); MCV 88.3 fL (80.0-100.0); RBC 2.78 mil/uL (4.50-6.00); RDW 16.2 % (10.5-14.5); WBC 9.5 thou/uL (4.0-11.0)
[2017-02-07 05:57] LABS: ALBUMIN 2.1 g/dL (3.4-5.0); CALCIUM 7.2 mg/dL (8.5-10.1); CREATININE 2.7 mg/dL (0.6-1.3); PHOSPHORUS 3.5 mg/dL (2.5-4.9); POTASSIUM 3.9 mmol/L (3.5-5.1)
[2017-02-07 09:32] VITALS: BP 111/71
[2017-02-07 16:00] VITALS: BP 107/70
[2017-02-07 21:47] VITALS: BP 102/70
[2017-02-08 05:19] VITALS: BP 109/71
[2017-02-08 15:30] VITALS: BP 98/68
[2017-02-09 05:45] VITALS: BP 103/67
[2017-02-09 06:18] LABS: CALCIUM 6.9 mg/dL (8.5-10.1); CREATININE 2.9 mg/dL (0.7-1.3); POTASSIUM 4.1 mmol/L (3.5-5.1)
[2017-02-09 07:28] VITALS: BP 109/69
[2017-02-09 16:10] VITALS: BP 103/65
[2017-02-10 06:07] VITALS: BP 95/58
[2017-02-10 07:11] LABS: HEMATOCRIT 23.8 % (42.0-52.0); HEMOGLOBIN 7.7 gm/dL (14.0-18.0); MCH 28.2 pg (26.0-34.0); MCHC 32.3 g/dL (28.0-37.0); MCV 87.4 fL (80.0-100.0); RBC 2.72 mil/uL (4.50-6.00); RDW 16.6 % (10.5-14.5)
[2017-02-10 07:20] LABS: CALCIUM 7.1 mg/dL (8.5-10.1); CREATININE 2.9 mg/dL (0.7-1.3); POTASSIUM 3.7 mmol/L (3.5-5.1)
[2017-02-10 10:40] VITALS: BP 116/68
[2017-02-10 10:50] VITALS: BP 112/71
[2017-02-10 17:10] VITALS: BP 104/65
[2017-02-11 05:05] VITALS: BP 110/70
[2017-02-11 15:36] VITALS: BP 96/55
[2017-02-12 03:38] VITALS: BP 96/55
[2017-02-12 16:00] VITALS: BP 97/63
[2017-02-13 05:08] VITALS: BP 111/70
[2017-02-13 15:40] VITALS: BP 93/57
[2017-02-14 05:45] VITALS: BP 97/59
[2017-02-14 12:27] LABS: HEMATOCRIT 24.5 % (42.0-52.0); MCH 28.6 pg (26.0-34.0); MCHC 32.8 g/dL (28.0-37.0); MCV 87.3 fL (80.0-100.0); RBC 2.81 mil/uL (4.50-6.00); RDW 17.3 % (10.5-14.5); WBC 7.5 thou/uL (4.0-11.0)
[2017-02-14 12:54] LABS: ALBUMIN 2.3 g/dL (3.4-5.0); CALCIUM 6.3 mg/dL (8.5-10.1); POTASSIUM 3.7 mmol/L (3.5-5.1); TOTAL BILIRUBIN 1.1 mg/dL (<0.1-1.0); TOTAL PROTEIN 5.4 g/dL (6.4-8.2)
[2017-02-14 16:00] VITALS: BP 101/60
[2017-02-14 21:32] LABS: URINE BILIRUBIN NEGATIVE (Negative); URINE BLOOD 1+ (Negative); URINE COLOR YELLOW; URINE GLUCOSE-RANDOM* NEGATIVE (Negative); URINE KETONES NEGATIVE (Negative); URINE LEUKOCYTES-REFLEX 3+ (Negative); URINE PROTEIN (DIPSTICK) NEGATIVE (Negative); URINE UROBILINOGEN 0.2 E.U./dl (0.2-1.0)
[2017-02-14 21:43] LABS: CASTS None Seen /LPF (None Seen); CRYSTALS None Seen /LPF (None Seen); SQUAMOUS 0-3 Few /LPF (0-3); YEAST-REFLEX Present (None Seen)
[2017-02-14 21:44] LABS: URINE RBC 0-2 Rare /HPF (0-2); URINE WBC-REFLEX >25 Many /HPF (0-5)
[2017-02-15 04:58] VITALS: BP 97/53
[2017-02-15 05:23] LABS: ALBUMIN 2.2 g/dL (3.4-5.0); CALCIUM 6.7 mg/dL (8.5-10.1); CREATININE 2.7 mg/dL (0.7-1.3); PHOSPHORUS 4.3 mg/dL (2.5-4.9); POTASSIUM 3.6 mmol/L (3.5-5.1)
[2017-02-15 07:48] VITALS: BP 104/60
[2017-02-15 15:45] VITALS: BP 103/69
[2017-02-16 04:08] VITALS: BP 118/68
[2017-02-16 07:00] VITALS: BP 115/45
[2017-02-16 16:48] VITALS: BP 104/58
[2017-02-17 01:51] VITALS: BP 103/55
[2017-02-17 16:42] VITALS: BP 116/67
[2017-02-17 19:55] VITALS: BP 117/73
[2017-02-18 04:59] LABS: ALBUMIN 2.1 g/dL (3.4-5.0); CALCIUM 6.5 mg/dL (8.5-10.1); CREATININE 2.2 mg/dL (0.7-1.3); POTASSIUM 3.1 mmol/L (3.5-5.1)
[2017-02-18 08:34] VITALS: BP 110/67
[2017-02-18 16:41] VITALS: BP 112/70
[2017-02-19 04:43] LABS: ALBUMIN 2.1 g/dL (3.4-5.0); CALCIUM 6.7 mg/dL (8.5-10.1); PHOSPHORUS 3.9 mg/dL (2.5-4.9); POTASSIUM 3.7 mmol/L (3.5-5.1)
[2017-02-19 04:49] VITALS: BP 118/68
[2017-02-19 15:40] VITALS: BP 110/66
[2017-02-20 05:38] VITALS: BP 102/65
[2017-02-20 10:14] LABS: URINE BILIRUBIN NEGATIVE (Negative); URINE BLOOD 1+ (Negative); URINE COLOR YELLOW; URINE GLUCOSE-RANDOM* NEGATIVE (Negative); URINE KETONES NEGATIVE (Negative); URINE LEUKOCYTES-REFLEX 3+ (Negative); URINE PROTEIN (DIPSTICK) NEGATIVE (Negative); URINE UROBILINOGEN 0.2 E.U./dl (0.2-1.0)
[2017-02-20 10:22] LABS: CASTS None Seen /LPF (None Seen); CRYSTALS None Seen /LPF (None Seen); SQUAMOUS 0-3 Few /LPF (0-3); URINE WBC-REFLEX >25 Many /HPF (0-5); YEAST-REFLEX Present (None Seen)
[2017-02-20 10:23] LABS: URINE RBC 0-2 Rare /HPF (0-2)
[2017-02-20 16:21] VITALS: BP 94/54
[2017-02-21 04:00] VITALS: BP 84/41
[2017-02-21 05:32] LABS: HEMATOCRIT 22.3 % (42.0-52.0); HEMOGLOBIN 7.1 gm/dL (14.0-18.0); MCH 28.1 pg (26.0-34.0); MCHC 31.8 g/dL (28.0-37.0); MCV 88.2 fL (80.0-100.0); RBC 2.52 mil/uL (4.50-6.00); RDW 17.1 % (10.5-14.5); WBC 4.3 thou/uL (4.0-11.0)
[2017-02-21 05:58] LABS: ALBUMIN 1.9 g/dL (3.4-5.0); CALCIUM 6.8 mg/dL (8.5-10.1); CREATININE 1.8 mg/dL (0.7-1.3); POTASSIUM 3.9 mmol/L (3.5-5.1); TOTAL BILIRUBIN 0.6 mg/dL (<0.1-1.0); TOTAL PROTEIN 5.5 g/dL (6.4-8.2)
[2017-02-21 15:30] VITALS: BP 107/57
[2017-02-22 05:46] VITALS: BP 116/78
[2017-02-22 07:25] VITALS: BP 111/73
[2017-02-22 10:19] LABS: HEMATOCRIT 24.5 % (42.0-52.0); HEMOGLOBIN 7.8 gm/dL (14.0-18.0); MCHC 31.7 g/dL (28.0-37.0); MCV 88.3 fL (80.0-100.0); RBC 2.77 mil/uL (4.50-6.00); RDW 17.6 % (10.5-14.5); WBC 4.6 thou/uL (4.0-11.0)
[2017-02-22 10:28] LABS: CREATININE 1.7 mg/dL (0.7-1.3)
[2017-02-22 15:22] VITALS: BP 117/77
[2017-02-23 05:46] VITALS: BP 116/68
[2017-02-23 07:22] VITALS: BP 123/73
[2017-02-23 08:18] VITALS: BP 108/70
[2017-02-23 15:42] VITALS: BP 93/55
[2017-02-23 16:30] VITALS: BP 106/66
[2017-02-23 16:50] LABS: HEMATOCRIT 24.1 % (42.0-52.0); HEMOGLOBIN 7.5 gm/dL (14.0-18.0); MCH 27.6 pg (26.0-34.0); MCHC 31.2 g/dL (28.0-37.0); MCV 88.6 fL (80.0-100.0); RBC 2.73 mil/uL (4.50-6.00); RDW 17.6 % (10.5-14.5); WBC 4.3 thou/uL (4.0-11.0)
[2017-02-23 17:01] LABS: CALCIUM 7.2 mg/dL (8.5-10.1); CREATININE 1.7 mg/dL (0.7-1.3); POTASSIUM 4.6 mmol/L (3.5-5.1)
[2017-02-24 04:19] LABS: HEMATOCRIT 24.7 % (42.0-52.0); HEMOGLOBIN 7.7 gm/dL (14.0-18.0); MCH 27.8 pg (26.0-34.0); MCHC 31.1 g/dL (28.0-37.0); MCV 89.2 fL (80.0-100.0); RBC 2.76 mil/uL (4.50-6.00); RDW 17.2 % (10.5-14.5); WBC 4.8 thou/uL (4.0-11.0)
[2017-02-24 04:35] LABS: CALCIUM 7.3 mg/dL (8.5-10.1); CREATININE 1.5 mg/dL (0.7-1.3); POTASSIUM 3.8 mmol/L (3.5-5.1)
[2017-02-24 05:54] VITALS: BP 95/51
[2017-02-24] MEDS ORDERED: K-DUR 20 MEQ T20 MEQ PO (11:18)
[2017-02-24] MEDS ORDERED: MEGESTROL ACETA40 MG PO (11:18)
[2017-02-24] MEDS ORDERED: CALTRATE-600 W1 EACH PO (11:19)
[2017-02-24] MEDS ORDERED: GLIMEPIRIDE1 MG PO (11:21)
[2017-02-24] MEDS ORDERED: NYAMYC15 GM TOP (11:21)
[2017-02-24] MEDS ORDERED: HUMALOG100 UNIT/1 SUBQ (11:21)
== END 2017-02-24 16:30 | DRG 64 ==
PROVIDERS: Hospitalist; Internal Medicine Nephrology; Nurse Practitioner; Nurse Practitioner Acute Care; Nurse Practitioner Gerontology; Physical Medicine & Rehabilitation
DX: I63.9 Cerebral infarction, unspecified (principal); I50.23 Acute on chronic systolic (congestive) heart failure; J18.9 Pneumonia, unspecified organism; E43 Unspecified severe protein-calorie malnutrition; N17.9 Acute kidney failure, unspecified; N39.0 Urinary tract infection, site not specified; I25.10 Atherosclerotic heart disease of native coronary artery without angina pectoris; I50.9 Heart failure, unspecified; G31.84 Mild cognitive impairment of uncertain or unknown etiology; I99.9 Unspecified disorder of circulatory system; N18.9 Chronic kidney disease, unspecified; N40.0 Benign prostatic hyperplasia without lower urinary tract symptoms; E11.22 Type 2 diabetes mellitus with diabetic chronic kidney disease; J45.909 Unspecified asthma, uncomplicated; D63.1 Anemia in chronic kidney disease; E86.0 Dehydration; R13.10 Dysphagia, unspecified; Z96.659 Presence of unspecified artificial knee joint; B96.5 Pseudomonas (aeruginosa) (mallei) (pseudomallei) as the cause of diseases classified elsewhere; Z91.041 Radiographic dye allergy status; Z98.42 Cataract extraction status, left eye; Z98.41 Cataract extraction status, right eye; Z68.31 Body mass index [BMI] 31.0-31.9, adult; Z95.5 Presence of coronary angioplasty implant and graft; Z82.49 Family history of ischemic heart disease and other diseases of the circulatory system; Z83.3 Family history of diabetes mellitus; Z80.9 Family history of malignant neoplasm, unspecified
CPT/HCPCS: 10112

== ENCOUNTER 2017-03-03 02:11 | Inpatient (IN) | payer OTHER ==
[~2017-03-03] VITALS: Ht 162.6 cm; Wt 82.6 kg
[2017-03-03] VITALS (7 sets, daily range): BP systolic 87–108; BP diastolic 50–65
--- NOTE | ~2017-03-03 | D ---
[facility] [place] [address] DISCHARGE SUMMARY Name: MENDOZACORNELIA STEPHENS Room #: 435-P [facility] IN M.R.#: [id number] Admission: 03/03/17 Attend Phys: Per Borden MD Discharge: 03/07/17 Date of : 32 Report #: [id number] THIS REPORT FOR: //name// CC: Aj Borden DATE OF SERVICE: 03/07/2017 DATE OF ADMISSION: 03/03/2017. DATE OF DISCHARGE: 03/07/2017. HISTORY OF PRESENT ILLNESS: The patient is an 86-year-old man with multiple medical problems, who had prolonged hospitalization here and he was discharged to the shelter facility on 02/24/2017. The patient was readmitted because his hemoglobin was 5.1. He was also dehydrated, but he did not have overt bleeding. Please refer to admission H and P for details. The patient was hospitalized here at the [facility]. He was treated appropriately and received blood transfusion. His energy level has improved. GI service was consulted, but family members denies further evaluation. The patient had no overt bleeding while he was here. He received iron infusion. He did well, and overall, his hospital stay was uneventful. His CHF as well as other medical problems remained stable. The patient was also seen by palliative care team. The patient is currently DNR. He is managed conservatively. Currently, the patient's condition is acceptable for him to be transferred to the shelter facility. DISCHARGE DIAGNOSES: 1. Rzqeu-mg-utpjaal anemia, no overt gastrointestinal bleed. The patient declined further GI evaluation. 2. Urinary tract infection, due to Klebsiella, sensitive to Cipro. Cipro will be continued for 7 more days. SECONDARY DIAGNOSES: 1. Recent cerebrovascular accident, resulting right-sided weakness. 2. Chronic systolic heart failure, currently compensated. Ejection fraction of 30% to 35%. 3. Urinary tract infection. 4. Diabetes mellitus type 2. 5. Somnolence. [address] [address] DISCHARGE SUMMARY Name: CORNELIA DONALDSON Room #: 435-P [facility].#: [id number] Admission: 03/03/17 Attend Phys: Per Borden MD Discharge: 03/07/17 Date of : 32 Report #: [id number] 6. Dysphagia. 7. Chronic anemia. 8. Chronic kidney disease stage 3. DISCHARGE MEDICATIONS: Please refer to the medication reconciliation list. DISPOSITION: The patient is discharged back to shelter home. I spent about 30 minutes to coordinate the patient's discharge from the hospital. <ELECTRONICALLY SIGNED> By: Chris Donovan MD 03/14/17 [id number] Chris Donovan MD /nt
--- NOTE | ~2017-03-03 | HC ---
[facility] [place] [address] CONSULTATION Name: CORNELIA DONALDSON MARCOSElda Room #: 435-P ADM IN M.R.#: [id number] Admission: 03/03/17 Attend Phys: Per Borden MD Discharge: Date of : 32 Report #: [id number] THIS REPORT FOR: //name// CC: Aj Borden REASON FOR CONSULTATION: CKD. REASON FOR PRESENTATION: Weakness and shortness of breath. HISTORY OF PRESENT ILLNESS: This is a very well known patient to me. He is an 86-year-old with past medical history of chronic kidney disease with baseline creatinine of around 2. He was hospitalized last month and had been in the hospital for an extended period of time. At that time, he was found to have a very poor ejection fraction at 30%. He ended up with pulmonary hypertension. Evaluation was carried out with coronary artery disease and 2 stent placement. We signed off his care with a baseline creatinine of around 2. He was discharged to a nursing facility. He had rehabilitation up in the fifth floor and then went to the [facility] after a cerebellar CVA. He presented with weakness, poor appetite. His daughter actually he has been acting unusual in the last few days. On presentation to the emergency room, he was found to have a hemoglobin of 5. He was admitted for further evaluation and management. He is a DNR status and his creatinine is at his baseline. He did have an EGD and a colonoscopy back in [place] and at that time, he was found to have diverticulosis. PAST MEDICAL HISTORY: Extensive and includes the followin. CKD. 2. Coronary artery disease. 3. Cerebellar CVA. 4. Heart failure. 5. Asthma. 6. Diabetes mellitus. 7. Anemia. PAST SURGICAL HISTORY: 1. Cardiac catheterization. 2. Colonoscopy. 3. EGD. MEDICATIONS: On presentation includes the followin. Prednisone. 2. Plavix. 3. Atorvastatin. 4. Carvedilol. 5. Aspirin. 6. Renagel. [address] [address] CONSULTATION Name: CORNELIA DONALDSON Room #: [address] [place] [address] [place] ..#: [id number] Admission: 03/03/17 Attend Phys: Per Borden MD Discharge: Date of : 32 Report #: [id number] 7. Glimepiride. FAMILY HISTORY: Significant for heart disease, diabetes mellitus and cancer. ADDITIONAL SURGICAL HISTORY: Cataract, total knee replacement, right knee surgery. SOCIAL HISTORY: He resides in a nursing facility. No drug or alcohol abuse. REVIEW OF SYSTEMS: GENERAL: Weakness. CARDIOVASCULAR: No chest pain or palpitation. PULMONARY: No cough or hemoptysis. GASTROINTESTINAL: As per the history of present illness. GENITOURINARY: No frequency, no urgency. LOWER EXTREMITIES: +2 edema, which is pretty much the same for him. PHYSICAL EXAMINATION: GENERAL: The patient was alert, oriented, in no apparent distress. VITAL SIGNS: Blood pressure 116/69, pulse 103, temperature 36.9. HEAD AND NECK: No jugular venous distention, no bruit, no thyromegaly. CHEST: Decreased air entry bilaterally. CARDIOVASCULAR: Regular with a soft systolic murmur, no rub detected. ABDOMEN: Soft, nontender with no hepatosplenomegaly. LOWER EXTREMITIES: +2 edema. LABORATORY VALUES: Reviewed. Creatinine from yesterday was 2.2, which is as I have stated around his baseline. His best value was around 1.5. Hemoglobin was 7 this morning. ASSESSMENT, IMPRESSION AND PLAN: 1. Chronic kidney disease. 2. Anemia. 3. Do not resuscitate status. 4. Heart failure. 5. Coronary artery disease. 6. From the renal perspective, he seems to be at his baseline. I would continue with the Lasix for now. He was transfused and anemia workup has been initiated. I will send basic laboratory investigations for his chronic kidney disease. I have reviewed all of the previous workup. Unfortunately, the patient has multiple comorbid conditions. He is a do not resuscitate status. 7. I realized that the patient is on prednisone and this might be contributing to his gastrointestinal issues. I will discuss with the hospitalist team regarding discontinuation of steroids. [address] [address] CONSULTATION Name: CORNELIA DONALDSON Room #: 435-P [facility] IN M.R.#: [id number] Admission: 03/03/17 Attend Phys: Per Borden MD Discharge: Date of : 31 Report #: [id number] 8. Gastrointestinal prophylaxis. 9. We will continue to follow along. <ELECTRONICALLY SIGNED> By: Jake Orellana MD 03/05/17 1640 [id number] Jake Orellana MD /nt
[~2017-03-03 02:11] MED LIST changes: +CALTRATE-600 W1 EACH PO; +GLIMEPIRIDE1 MG PO; +HUMALOG100 UNIT/1 SUBQ; +K-DUR 20 MEQ T20 MEQ PO; +MEGESTROL ACETA40 MG PO; +NYAMYC15 GM TOP
[2017-03-03] MEDS ORDERED: MELATONIN3 MG (02:26)
[2017-03-03] MEDS ORDERED: VITAMIN B12 PO (02:27)
[2017-03-03 03:11] LABS: URINE BILIRUBIN NEGATIVE (Negative); URINE BLOOD 1+ (Negative); URINE COLOR YELLOW; URINE GLUCOSE-RANDOM* NEGATIVE (Negative); URINE KETONES NEGATIVE (Negative); URINE LEUKOCYTES-REFLEX 3+ (Negative); URINE PROTEIN (DIPSTICK) 1+ (Negative); URINE UROBILINOGEN 0.2 E.U./dl (0.2-1.0)
[2017-03-03 03:12] LABS: BASOPHILS 0.5 % (0.0-2.0); EOSINOPHILS 0.8 % (0.0-3.0)
[2017-03-03 03:13] LABS: ABSOLUTE NEUTROPHILS 4.1 thou/uL (1.4-8.2); LYMPHOCYTES 27.9 % (24.0-44.0); MCH 29.4 pg (26.0-34.0); MCHC 30.7 g/dL (28.0-37.0); MCV 95.9 fL (80.0-100.0); MONOCYTES 8.9 % (1.0-8.0); PLATELET COUNT 172 thou/uL (150-400); POLYS 61.9 % (36.0-66.0); RDW 20.4 % (10.5-14.5); WBC 6.6 thou/uL (4.0-11.0)
[2017-03-03 03:15] LABS: MANUAL DIFF NO
[2017-03-03 03:17] LABS: HEMATOCRIT 16.3 % (42.0-52.0)
[2017-03-03 03:18] LABS: CALCIUM 7.6 mg/dL (8.5-10.1); CREATININE 2.2 mg/dL (0.7-1.3); POTASSIUM 4.5 mmol/L (3.5-5.1)
[2017-03-03 03:24] LABS: CASTS None Seen /LPF (None Seen); CRYSTALS None Seen /LPF (None Seen); SQUAMOUS None Seen /LPF (0-3); URINE RBC 3-10 Few /HPF (0-2); URINE WBC-REFLEX >25 Many /HPF (0-5)
[2017-03-03 03:25] LABS: WBC CLUMPS Occasional (None Seen)
[2017-03-03 03:26] LABS: YEAST-REFLEX Present (None Seen)
[2017-03-03 03:33] LABS: ALBUMIN 2.4 g/dL (3.4-5.0); DIRECT BILIRUBIN 0.1 mg/dL (<0.1-0.3); MAGNESIUM 1.9 mg/dL (1.8-2.4); TOTAL BILIRUBIN 0.4 mg/dL (<0.1-1.0); TOTAL PROTEIN 5.5 g/dL (6.4-8.2)
[2017-03-03 03:34] LABS: APTT 23.1 Seconds (24.5-32.8); INR 1.2; PROTIME 12.2 Seconds (9.3-11.4)
[2017-03-04 04:36] VITALS: BP 116/69
[2017-03-04 08:21] VITALS: BP 104/63
[2017-03-04 08:27] VITALS: BP 104/63
[2017-03-04 09:07] LABS: RBC 2.36 mil/uL (4.50-6.00)
[2017-03-04 09:09] LABS: HEMATOCRIT 21.4 % (42.0-52.0); MCH 29.4 pg (26.0-34.0); MCHC 32.5 g/dL (28.0-37.0); PLATELET COUNT 142 thou/uL (150-400); RDW 18.4 % (10.5-14.5); WBC 5.5 thou/uL (4.0-11.0)
[2017-03-04 09:11] LABS: MANUAL DIFF YES; MCV 90.6 fL (80.0-100.0)
[2017-03-04 09:14] LABS: HEMOGLOBIN 6.9 gm/dL (14.0-18.0)
[2017-03-04 09:16] LABS: CALCIUM 6.9 mg/dL (8.5-10.1); CREATININE 2.1 mg/dL (0.7-1.3); MAGNESIUM 1.8 mg/dL (1.8-2.4); POTASSIUM 3.5 mmol/L (3.5-5.1)
[2017-03-04 09:58] LABS: ABSOLUTE NEUTROPHILS 3.7 thou/uL (1.4-8.2); ANISOCYTOSIS 2+; NUCLEATED RBCS 1 /100WBC; POLYCHROMASIA OCCASIONAL; TOTAL CELL COUNT 100
[2017-03-04 09:59] LABS: ATYPICAL LYMPHS 1 %
[2017-03-04 11:24] VITALS: BP 101/65
[2017-03-04 16:04] VITALS: BP 95/55
[2017-03-04 20:00] VITALS: BP 98/56
[2017-03-05] VITALS (7 sets, daily range): BP systolic 94–104; BP diastolic 52–65
[2017-03-05 06:05] LABS: HEMATOCRIT 22.2 % (42.0-52.0); HEMOGLOBIN 7.2 gm/dL (14.0-18.0); MCH 28.6 pg (26.0-34.0); MCHC 32.3 g/dL (28.0-37.0); MCV 88.6 fL (80.0-100.0); PLATELET COUNT 126 thou/uL (150-400); RBC 2.51 mil/uL (4.50-6.00); RDW 18.2 % (10.5-14.5)
[2017-03-05 06:16] LABS: CALCIUM 6.5 mg/dL (8.5-10.1); CREATININE 1.9 mg/dL (0.7-1.3); POTASSIUM 3.1 mmol/L (3.5-5.1)
[2017-03-05 06:28] LABS: MANUAL DIFF YES
[2017-03-05 08:42] LABS: ABSOLUTE NEUTROPHILS 3.9 thou/uL (1.4-8.2); TOTAL CELL COUNT 100
[2017-03-06 03:35] LABS: HEMATOCRIT 22.6 % (42.0-52.0); HEMOGLOBIN 7.4 gm/dL (14.0-18.0); MCH 28.7 pg (26.0-34.0); MCHC 32.5 g/dL (28.0-37.0); MCV 88.3 fL (80.0-100.0); RBC 2.56 mil/uL (4.50-6.00); RDW 18.5 % (10.5-14.5); WBC 5.7 thou/uL (4.0-11.0)
[2017-03-06 03:56] LABS: CALCIUM 6.9 mg/dL (8.5-10.1); CREATININE 1.8 mg/dL (0.7-1.3); PHOSPHORUS 3.4 mg/dL (2.5-4.9); POTASSIUM 3.7 mmol/L (3.5-5.1)
[2017-03-06 04:03] VITALS: BP 90/60
[2017-03-06 07:21] VITALS: BP 100/52
[2017-03-06 11:44] VITALS: BP 98/61
[2017-03-06 16:00] VITALS: BP 113/67
[2017-03-06 19:18] VITALS: BP 92/60
[2017-03-07 04:40] VITALS: BP 99/53
[2017-03-07 06:12] LABS: HEMATOCRIT 23.5 % (42.0-52.0); HEMOGLOBIN 7.6 gm/dL (14.0-18.0); MCH 28.6 pg (26.0-34.0); MCHC 32.4 g/dL (28.0-37.0); MCV 88.1 fL (80.0-100.0); RBC 2.67 mil/uL (4.50-6.00); WBC 5.5 thou/uL (4.0-11.0)
[2017-03-07 06:28] LABS: ALBUMIN 2.1 g/dL (3.4-5.0); CALCIUM 6.4 mg/dL (8.5-10.1); CREATININE 1.8 mg/dL (0.7-1.3); PHOSPHORUS 3.3 mg/dL (2.5-4.9); POTASSIUM 3.6 mmol/L (3.5-5.1)
[2017-03-07 08:00] VITALS: BP 93/64
[2017-03-07 12:00] VITALS: BP 97/61
[2017-03-07] MEDS ORDERED: PROCRIT20000 UNIT SUBQ (12:55)
[2017-03-07] MEDS ORDERED: FLUCONAZOLE 10100 MG PO (12:55)
[2017-03-07] MEDS ORDERED: CIPRO500 MG PO (12:55)
[2017-03-07] MEDS ORDERED: HUMALOG100 UNIT/1 SUBQ (12:55)
== END 2017-03-07 17:20 | DRG 682 ==
LOC: ER 02:11 → EROBS 03:58 → 4S 03:58
PROVIDERS: Emergency Medicine; Hospitalist; Internal Medicine; Internal Medicine Nephrology; Nurse Practitioner
PROC: 30233N1 Transfusion of Nonautologous Red Blood Cells into Peripheral Vein, Percutaneous Approach (ICD-10-PCS; principal; 2017-03-03)
DX: N17.9 Acute kidney failure, unspecified (principal); I50.23 Acute on chronic systolic (congestive) heart failure; N39.0 Urinary tract infection, site not specified; D62 Acute posthemorrhagic anemia; E44.0 Moderate protein-calorie malnutrition; K92.2 Gastrointestinal hemorrhage, unspecified; E87.0 Hyperosmolality and hypernatremia; J45.909 Unspecified asthma, uncomplicated; N40.0 Benign prostatic hyperplasia without lower urinary tract symptoms; Z96.651 Presence of right artificial knee joint; E78.5 Hyperlipidemia, unspecified; M19.90 Unspecified osteoarthritis, unspecified site; E87.6 Hypokalemia; D63.8 Anemia in other chronic diseases classified elsewhere; E11.22 Type 2 diabetes mellitus with diabetic chronic kidney disease; N18.3 Chronic kidney disease, stage 3 (moderate); I25.5 Ischemic cardiomyopathy; I25.10 Atherosclerotic heart disease of native coronary artery without angina pectoris; Z51.5 Encounter for palliative care; B96.1 Klebsiella pneumoniae [K. pneumoniae] as the cause of diseases classified elsewhere; Z66 Do not resuscitate; R13.10 Dysphagia, unspecified; I95.9 Hypotension, unspecified; Z68.31 Body mass index [BMI] 31.0-31.9, adult; Z91.041 Radiographic dye allergy status; Z95.5 Presence of coronary angioplasty implant and graft; Z86.73 Personal history of transient ischemic attack (TIA), and cerebral infarction without residual deficits; Z82.49 Family history of ischemic heart disease and other diseases of the circulatory system; Z83.3 Family history of diabetes mellitus; Z80.9 Family history of malignant neoplasm, unspecified; Z98.49 Cataract extraction status, unspecified eye; Z79.52 Long term (current) use of systemic steroids; Z79.82 Long term (current) use of aspirin; Z79.899 Other long term (current) drug therapy
CPT/HCPCS: 10100